=== PATIENT | female | born 1955 | race Caucasian/White ===

== ENCOUNTER 2016-08-05 08:21 | Day surgery (SDC) | payer BC ==
[2016-08-05] MEDS ORDERED: LIDOCAINE HCL 1% MPF SOL ONE (08:23)
[2016-08-05] MEDS ORDERED: PROPOFOL 500 MG/50 ML EMU IV ONE (08:23)
[2016-08-05 10:09] VITALS: BP 128/68; PULSE 61; RESP 18; TEMP 97.4; O2SAT 99
== END 2016-08-05 10:43 | disposition home or self-care (01) ==
LOC: SURG 08:21
PROVIDERS: ATTEND Surgery
DX: Z12.11 Encounter for screening for malignant neoplasm of colon (principal); Z80.0 Family history of malignant neoplasm of digestive organs; Z83.71 Family history of colonic polyps; K57.30 Diverticulosis of large intestine without perforation or abscess without bleeding; D12.0 Benign neoplasm of cecum
CPT/HCPCS: 45385; 99001; J2001; J2704